=== PATIENT | male | born 1990 | race Caucasian/White ===

== ENCOUNTER 2016-08-11 21:15 | Emergency (ER) | payer OTHER | END 2016-08-11 22:53 | disposition home or self-care (01) | LOC: ER 21:15 | DX: S90.861A Insect bite (nonvenomous), right foot, initial encounter (principal); W57.XXXA Bitten or stung by nonvenomous insect and other nonvenomous arthropods, initial encounter; Z88.1 Allergy status to other antibiotic agents | CPT/HCPCS: 99282 ==